=== PATIENT | male | born 1995 | race African-American/Black ===

== ENCOUNTER 2018-05-03 22:11 | Emergency (ER) | payer BC | END 2018-05-04 02:12 | disposition home or self-care (01) | LOC: JER 05-04 02:12 ==

== ENCOUNTER 2019-01-03 19:40 | Emergency (ER) | payer SELFPAY ==
--- NOTE | 2019-01-03 19:43 | PDOC ---
Rapid Medical Evaluation Time Seen by Provider: 01/03/19 19:42 Medical Evaluation: Allergies Allergy/AdvReac Type Severity Reaction Status Date / Time No Known Allergies Allergy Verified 01/13/13 08:35 01/03/19 19:42 HPI: L ear clogged about 1 hour PE: No gross deficits ear exam deferred ORDERS: Nothing Discharge Disposition - Diagnosis Clogged ear - Referrals Referrals: Alva Werner MD [Primary Care Provider] - - Patient Instructions - Post Discharge Activity
[2019-01-03 19:47] VITALS: BP 149/79; PULSE 61; TEMP 98.4; BMI 24.4
--- NOTE | 2019-01-03 20:34 | PDOC ---
History of Present Illness - General Chief Complaint: Ear Problem Stated Complaint: LEFT EAR CLOGGED Time Seen by Provider: 01/03/19 19:42 History Source: Patient - History of Present Illness Initial Comments: 01/03/19 21:49 Chief complaint: Clogged left ear Patient is 23-year-old male who has hearing issue with the right ear, complaining of clogged left ear for 1 hour. No fever or other complaints. GENERAL/CONSTITUTIONAL: No fever, weakness. dizziness HEAD, EYES, EARS, NOSE AND THROAT: No change in vision. No ear pain or discharge. No sore throat.+ clogged left ear CARDIOVASCULAR: No chest pain RESPIRATORY: No shortness of breath or cough GASTROINTESTINAL: No pain, nausea, vomiting, diarrhea or constipation GENITOURINARY: No dysuria MUSCULOSKELETAL: No neck or back pain SKIN: No rash NEUROLOGIC: No headache, vertigo, loss of consciousness, or loss of sensation. GENERAL: The patient is awake, alert, and fully oriented, in no acute distress. HEAD: Normal with no signs of trauma. EYES: Pupils equal, round and reactive to light, sclera anicteric, conjunctiva clear. ENT: pharynx: no erythema, no exudate, uvula midline. Right ear clear, TM normal , left ear with cerumen, impacted to whole canal NECK: supple CHEST: clear, nontender, rr EXTREMITIES: Normal range of motion, no edema. NEUROLOGICAL: Normal speech, normal gait. SKIN: Warm, Dry 01/03/19 21:50 Past History - Past Medical History Allergies/Adverse Reactions: Allergies Allergy/AdvReac Type Severity Reaction Status Date / Time No Known Allergies Allergy Verified 01/03/19 19:45 Home Medications: Ambulatory Orders Famotidine [Pepcid] 20 mg PO BID PRN #30 tablet MDD 2 tab 05/04/18 Anemia: No Asthma: No Cancer: No Cardiac Disorders: No CVA: No COPD: No CHF: No DVT: No Dementia: No Diabetes: No Other medical history: Pt denies - Surgical History Cardiac Surgery: No - Immunization History Immunization Up to Date: Yes - Suicide/Smoking/Psychosocial Hx Smoking Status: No Smoking History: Never smoked Have you smoked in the past 12 months: No Number of Cigarettes Smoked Daily: 0 Information on smoking cessation initiated: No Hx Alcohol Use: No Drug/Substance Use Hx: No *Physical Exam - Vital Signs Last Vital Signs Temp Pulse Resp BP Pulse Ox 98.4 F 61 17 149/79 99 01/03/19 19:46 01/03/19 19:46 01/03/19 19:46 01/03/19 19:46 01/03/19 19:46 Medical Decision Making - Medical Decision Making 01/03/19 21:50 23-year-old with cerumen impaction to the left ear, patient has problems with the right ear, chronically with hearing, patient is able to hear today. Discussed options with patient and mother. Recommended having ENT do procedure on ear given that his right ear is impaired to prevent unnecessary trauma. Patient was shown that he could get an appointment at [facility] tomorrow if he went on the website and he agreed to do this. meanwhile patient will use either Debrox or hydrogen peroxide to soften up the wax. Discussed issues, findings, results, applicable medications and treatments and follow-up. All these were understood and all questions were answered *DC/Admit/Observation/Transfer Diagnosis at time of Disposition: Clogged ear Qualifiers: Laterality: left Qualified Code(s): H93.8X2 - Other specified disorders of left ear - Discharge Dispostion Disposition: HOME Condition at time of disposition: Stable - Referrals Referrals: Alva Werner MD [Primary Care Provider] - - Patient Instructions Additional Instructions: Use either the Debrox as instructed on the box or the hydrogen peroxide, small amount on a cotton ball dripped into your ear and you lay there for about 20 minutes until it stops fizzing and then when she ear out in the shower. Go on the website for [facility] and make an appointment with the doctor of your choice If you have any issues, you can call me at [phone] on Thursday after 10 AM and I will try to assist you - Post Discharge Activity
== END 2019-01-03 21:01 | disposition home or self-care (01) ==
LOC: JERFT 19:40
DX: H61.22 Impacted cerumen, left ear (principal)
CPT/HCPCS: 99281-25

== ENCOUNTER 2024-09-20 20:26 | Emergency (ER) | payer OTHER ==
[2024-09-20 20:33] VITALS: BP 138/76; PULSE 62; RESP 20; TEMP 98.4; BMI 25.1
== END 2024-09-20 21:10 | disposition home or self-care (01) ==
LOC: JERFT 20:26
DX: G44.209 Tension-type headache, unspecified, not intractable (principal)
CPT/HCPCS: 99283-25